=== PATIENT | female | born 1955 | race Caucasian/White ===

== ENCOUNTER 2023-01-30 12:01 | Outpatient (REF) | payer OTHER, MEDICAID, SELFPAY ==
[2023-01-30 13:35] LABS: MANUAL DIFF FLAG NO
[2023-01-30 13:53] LABS: Basophils Percent Auto 0.4 % (0-2); Eosinophils Absolute Auto 0.1 X10*3/uL (0.0-0.4); Eosinophils Percent Auto 1.1 % (0-4); Hematocrit 41.8 % (37.0-47.0); Hemoglobin 13.9 g/dl (12.0-16.0); Imm Gran Abs Auto 0.02 X10*3/uL (0.00-0.03); Imm Gran Pct Auto 0.2 % (0.0-0.4); Lymphocytes Absolute Auto 2.4 X10*3/uL (1.2-4.9); Lymphocytes Percent Auto 28.9 % (20-40); Mean Corpuscular HGB Conc 33.3 g/dl (31.0-35.0); Mean Corpuscular Hemoglobin 30.1 pg (27.0-33.0); Mean Corpuscular Volume 90.5 fL (80.0-98.0); Mean Platelet Volume 9.5 fL (9.4-12.3); Monocytes Absolute Auto 0.9 X10*3/uL (0.1-1.2); Monocytes Percent Auto 10.6 % (2-11); Neutrophils Absolute Auto 4.9 x10*3/uL (2.0-8.3); Neutrophils Percent Auto 58.8 % (45-73); Platelet Count 308 X10*3/uL (160-400); Red Blood Count 4.62 X10*6/uL (4.20-5.50); Red Cell Distribution Width 13.3 % (11.0-16.0); White Blood Count 8.3 X10*3/uL (4.8-10.8)
[2023-01-30 14:50] LABS: Alanine Aminotransferase 47 U/L (0-31); Albumin Level 3.8 g/dL (3.5-5.0); Alkaline Phosphatase 107 U/L (39-117); Anion Gap 12 (12-20); Aspartate Amino Transferase 39 U/L (5-31); Bilirubin Direct 0.2 mg/dL (0.0-0.5); Bilirubin Total 0.5 mg/dL (0.0-1.0); Blood Urea Nitrogen 12 mg/dL (9-16); Calcium 9.4 mg/dL (8.4-10.2); Carbon Dioxide 30 mmol/L (22-29); Chloride 99 mmol/L (96-108); Cholesterol 194 mg/dL; Estimated Glomerular Filt Rate > 60; Glucose Random 113 mg/dL (60-115); HDL Cholesterol 40 mg/dL; Iron 77 mcg/dL (30-160); LDL Cholesterol Calculated 128 mg/dl; Magnesium 2.3 mg/dL (1.6-2.6); Percent Iron Saturation 27 % (15-50); Potassium 3.7 mmol/L (3.3-5.1); Sodium 137 mmol/L (135-145); Total Iron Binding Capacity 281 mcg/dL (228-428); Total Protein 7.4 g/dL (6.5-8.0); Triglycerides 130 mg/dL; Unsaturated Iron Binding 204 ug/dL
[2023-01-30 14:52] LABS: Estimated Average Glucose 140 mg/dL; Hemoglobin A1c % 6.5 %
[2023-01-30 15:08] LABS: Ferritin 175 ng/mL (10-250); TSH reflex Free T4 93.09 uIU/mL (0.32-4.0)
[2023-01-30 16:15] LABS: Free T4 (Free Thyroxine) < 0.42 ng/dL (0.71-1.85)
[2023-01-30 16:18] LABS: Folate 6.5 ng/mL (> or = 4.0); Vitamin B12 555 pg/mL (200-900)
[2023-01-31 08:43] LABS: HIV AB/AG Nonreactive (Nonreactive); HIV Num 1 0.04 S/CO (0.00-0.99)
[2023-01-31 08:46] LABS: ~HepC Num1 0.13 S/CO (0.00-0.79); ~Hepatitis C Antibody Nonreactive (Nonreactive)
[2023-02-05 12:44] LABS: VITAMIN D (1,25 OH) D3 58 pg/mL; Vit D (1,25-Dihydroxy) Total 58 pg/mL (18-72); Vitamin D (1,25 OH) D2 <8 pg/mL
== END 2023-01-30 12:02 | disposition home or self-care (01) ==
LOC: HO.HHCL 12:01
PROVIDERS: Visit Provider Family Medicine
DX: Z11.4 Encounter for screening for human immunodeficiency virus [HIV] (principal); R53.1 Weakness
CPT/HCPCS: 36415; 80048; 80061; 80076; 82607; 82652; 82728; 82746; 83036; 83540; 83735; 84439; 84443; 85025; 86803; 87389

== ENCOUNTER 2023-03-11 12:58 | Emergency (ER) | payer OTHER, SELFPAY ==
--- NOTE | ~2023-03-11 | XR_ITS ---
EXAMINATION: XR CHEST CLINICAL INFORMATION: Chest pain. COMPARISON: None available. TECHNIQUE: Frontal view of the chest was obtained. FINDINGS: No significant abnormality is noted involving the heart, lungs, mediastinum, bony thorax or soft tissues. XR/XR chest 1V IMPRESSION: No acute cardiopulmonary process.
--- NOTE | ~2023-03-11 | CT_ITS ---
EXAMINATION: CT ABDOMEN AND PELVIS WITH CONTRAST CLINICAL INFORMATION: Diffuse abdominal pain. COMPARISON: None available. TECHNIQUE: Multidetector volumetric images were obtained from the superior aspect of the liver through the pubic symphysis following administration 85 mL of Omnipaque 350 intravenous contrast. Sagittal and coronal reformatted images were obtained on the technologist's workstation. Oral contrast: No This CT examination was performed using dose optimization techniques as appropriate, variously including the following: *Automated exposure control *Adjustment of mA and/or kV according to patient size (this includes techniques or standardized protocols for targeted exams where dose is matched to indication/reason for exam; i.e. extremities or head) *Use of iterative reconstruction technique DLP: 655 mGy-cm FINDINGS: LUNG BASES: Mild elevation of the right hemidiaphragm. Mild bibasilar linear atelectasis/scarring, right greater than left. No pleural or pericardial effusions. LIVER, GALLBLADDER, AND BILIARY TREE: Unremarkable. PANCREAS: Unremarkable. SPLEEN: Unremarkable. ADRENAL GLANDS: Unremarkable. KIDNEYS AND URETERS: Nonobstructing intrarenal calculi bilaterally, left greater than right. Small cysts bilaterally, left greater than right demonstrate benign features. No hydroureteronephrosis. BLADDER: Mildly distended without focal abnormality. GASTROINTESTINAL TRACT: The stomach and small bowel and appendix are unremarkable. The colon and rectum are unremarkable. ABDOMINAL WALL: No significant hernia is appreciated. LYMPH NODES: No lymphadenopathy. VASCULAR: Unremarkable. PELVIC VISCERA: Anteverted/anteflexed uterus. Fluid attenuation left adnexal cyst measures 4.0 cm in AP dimension without calcification. No right adnexal abnormality. OSSEOUS STRUCTURES: L5-S1 is transitional with partial sacralization of L5, greater on the right side. Prominent disc osteophyte complexes on the right at L3-L4 and L4-L5 with associated narrowing of the right neural foramina. Mild to moderate multilevel degenerative changes including prominent multilevel marginal osteophyte formation. No acute/suspicious abnormality. CT/CT abdomen pelvis w IV con IMPRESSION: 1. No acute intra-abdominal/pelvic abnormality to explain the patient's pain. 2. Nonobstructing intrarenal calculi bilaterally, left greater than right. Small renal cysts demonstrate benign features not requiring follow-up at this time. 3. 4 cm left adnexal cyst demonstrates benign features, but should be followed up with pelvic ultrasound for additional characterization. 4. Multilevel degenerative changes in the lumbar spine with associated narrowing of the right neural foramina at L3-L4 and L4-L5.
--- NOTE | 2023-03-11 13:10 | ED_ITS ---
HPI - Chest Pain General Chief Complaint: Chest Pain Stated Complaint: chest pain Time Seen by Provider: 03/11/23 13:07 Source: patient, family and EMS Mode of arrival: EMS Limitations: language barrier History of Present Illness HPI narrative: EMS gave ASA and zofran patient presents with no chest pain. Patient was in the bathroom and she felt her chest tightning. It was substernal. According to her son she has had chest pain and panic attacks. Patient with old right sided weakness complaint: chest pain Onset (ago): minute(s) Timing of current episode: episodic Prior episodes: No Related Data Allergies Allergy/AdvReac Type Severity Reaction Status Date / Time penicillin G Allergy Intermediate Itching Verified 03/11/23 13:13 Review of Systems Review of Systems: Yes all other systems are reviewed and are negative Neurologic: Denies Sensory deficit (Neuro) [facility] Social History Social History Advance Directives: No Advance Directives Information Provided: Yes Physical Exam Vital Signs: Vital Signs: Last Vital Signs Temp 97.9 F 03/11/23 16:05 Pulse 75 03/11/23 16:05 Resp 16 03/11/23 16:05 BP 112/32 L 03/11/23 16:05 Pulse Ox 97 03/11/23 16:05 O2 Del Method Room Air 03/11/23 16:05 BMI result Body Mass Index 30.2 Const: Other: obese female looking older than stated age, looking unkept Orientation/consciousness: oriented to person Limitations: no limitations HEENT: Head: Yes normal to inspection Ears: external ears normal General nose exam: Normal external nose present Mouth: Normal oral and palatal mucosa present and oropharynx normal Throat: Yes posterior oropharynx normal Eyes: General: appearance normal, both eyes and all related structures Neck: Other: supple Neck: Yes normal visual inspection Chest: Chest palpation & inspection: normal inspection of the chest Resp: Auscultation: clear to auscultation bilaterally Cardio: Jugular venous distension: no JVD Rate: regular rate Rhythm: regular rhythm Heart sounds: S1 normal heart sound present and S2 normal heart sound present GI: Inspection: Yes normal to inspection Palpation (GI): Soft to palpation, nontender and No hepatosplenomegaly present Auscultation: normal bowel sounds : General: Yes no CVA tenderness Back/Spine/Pelvis: Back: no CVA tenderness Skin: General skin exam: no rashes or lesions noted Neuro: Other: old right sided weakness and facial weakness General: oriented to person Sensory Exam: No Sensory deficit (Neuro) Extrem: General: Yes normal to inspection Psych: Appearance: grossly normal Course Reevaluation(s) Reevaluation #1: repeat troponin negative, will dc home Time: 17:23 Medications Administered Discontinued Medications Generic Name Dose Route Start Last Admin Trade Name Marty PRN Reason Stop Dose Admin Nitroglycerin 1 inch 03/11/23 13:13 03/11/23 13:23 Nitroglycerin 2 % Oint 1 Gm Packet TRANSDERMA 03/11/23 13:14 1 inch ONCE ONE Administration Medical Decision Making Differential Diagnosis Differential Diagnoses: The differential diagnosis associated with the presentation includes (cardiac ischemia, CAD, pneumonia, costrochondritis were all considered) Admission/Observation Consideration of admission/observation: Escalation of care including admission/observation considered (upon arrival patient was considered for admission) Lab Data MDM Lab Attestation statement: I reviewed the patient's lab results. (WBC slightly elevated, troponin normal) 03/11/23 13:46 03/11/23 13:46 Labs: Lab Results 03/11/23 03/11/23 03/11/23 Range/Units 13:46 13:46 13:46 WBC 11.3 H (4.8-10.8) X10*3/uL RBC 4.87 (4.20-5.50) X10*6/uL Hgb 14.3 (12.0-16.0) g/dl Hct 42.9 (37.0-47.0) % MCV 88.1 (80.0-98.0) fL MCH 29.4 (27.0-33.0) pg MCHC 33.3 (31.0-35.0) g/dl RDW 11.9 (11.0-16.0) % Plt Count 263 (160-400) X10*3/uL MPV 9.6 (9.4-12.3) fL Immature Gran % (Auto) 0.4 (0.0-0.4) % Neut % (Auto) 59.7 (45-73) % Lymph % (Auto) 23.3 (20-40) % Gregory % (Auto) 15.1 H (2-11) % Eos % (Auto) 1.1 (0-4) % Baso % (Auto) 0.4 (0-2) % Lymph # (Auto) 2.6 (1.2-4.9) X10*3/uL Gregory # (Auto) 1.7 H (0.1-1.2) X10*3/uL Eos # (Auto) 0.1 (0.0-0.4) X10*3/uL Baso # (Auto) 0.0 (0.0-0.2) X10*3/uL Abs Immat Gran (auto) 0.04 H (0.00-0.03) X10*3/uL Absolute Neuts (auto) 6.8 (2.0-8.3) x10*3/uL Absolute Nucleated RBC 0.000 (0.0-0.012) X10*3/uL Nucleated RBC % (auto) 0.0 (0.0-0.2) /100WBC Smear Tech's Comments VERIFIED Sodium 136 (135-145) mmol/L Potassium 3.7 (3.3-5.1) mmol/L Chloride 100 (96-108) mmol/L Carbon Dioxide 26 (22-29) mmol/L Anion Gap 14 (12-20) BUN 11 (9-16) mg/dL Creatinine 0.56 (0.5-1.4) mg/dL Estim Creat Clear Calc 91.0 Estimated GFR > 60 Random Glucose 117 H (60-115) mg/dL Calcium 9.4 (8.4-10.2) mg/dL Troponin I High Sens < 2.7 (<3.5-17.0) ng/L 03/11/23 Range/Units 16:35 WBC (4.8-10.8) X10*3/uL RBC (4.20-5.50) X10*6/uL Hgb (12.0-16.0) g/dl Hct (37.0-47.0) % MCV (80.0-98.0) fL MCH (27.0-33.0) pg MCHC (31.0-35.0) g/dl RDW (11.0-16.0) % Plt Count (160-400) X10*3/uL MPV (9.4-12.3) fL Immature Gran % (Auto) (0.0-0.4) % Neut % (Auto) (45-73) % Lymph % (Auto) (20-40) % Gregory % (Auto) (2-11) % Eos % (Auto) (0-4) % Baso % (Auto) (0-2) % Lymph # (Auto) (1.2-4.9) X10*3/uL Gregory # (Auto) (0.1-1.2) X10*3/uL Eos # (Auto) (0.0-0.4) X10*3/uL Baso # (Auto) (0.0-0.2) X10*3/uL Abs Immat Gran (auto) (0.00-0.03) X10*3/uL Absolute Neuts (auto) (2.0-8.3) x10*3/uL Absolute Nucleated RBC (0.0-0.012) X10*3/uL Nucleated RBC % (auto) (0.0-0.2) /100WBC Smear Tech's Comments Sodium (135-145) mmol/L Potassium (3.3-5.1) mmol/L Chloride (96-108) mmol/L Carbon Dioxide (22-29) mmol/L Anion Gap (12-20) BUN (9-16) mg/dL Creatinine (0.5-1.4) mg/dL Estim Creat Clear Calc Estimated GFR Random Glucose (60-115) mg/dL Calcium (8.4-10.2) mg/dL Troponin I High Sens < 2.7 (<3.5-17.0) ng/L Independent Interpretation I performed an independent interpretation of an: EKG (sinus [address] or twave changes) and Plain X-Ray (no infiltrate) Chronic Conditions Patient?s care impacted by: Diabetes and Hypertension Discharge Plan Discharge Clinical Impression: Chest pain Patient Disposition: Home, Self-Care Instructions: Chest Pain (ED) Referrals: Oralia Srinivasan MD [Primary Care Provider] - 3 days
[2023-03-11 13:13] VITALS: BP 115/42; PULSE 78; RESP 14; TEMP 36.6; O2SAT 98; BMI 30.2
--- NOTE | 2023-03-11 13:13 | ECG_ITS ---
Test Reason : cp Blood Pressure : / mmHG Vent. Rate : 076 BPM Atrial Rate : 076 BPM P-R Int : 138 ms QRS Dur : 080 ms QT Int : 386 ms P-R-T Axes : 066 054 071 degrees QTc Int : 434 ms Normal sinus rhythm Normal ECG No previous ECGs available Referred By: Elder Han Electronically Signed By:ALEK QUINTANA
[2023-03-11] MEDS: Nitroglycerin 2 % Oint 1 GM Packet 1 INCH TRANSDERMA (13:23)
[2023-03-11 13:58] LABS: Basophils Percent Auto 0.4 % (0-2); Eosinophils Absolute Auto 0.1 X10*3/uL (0.0-0.4); Eosinophils Percent Auto 1.1 % (0-4); Hematocrit 42.9 % (37.0-47.0); Hemoglobin 14.3 g/dl (12.0-16.0); Imm Gran Abs Auto 0.04 X10*3/uL (0.00-0.03); Imm Gran Pct Auto 0.4 % (0.0-0.4); Lymphocytes Absolute Auto 2.6 X10*3/uL (1.2-4.9); Lymphocytes Percent Auto 23.3 % (20-40); MANUAL DIFF FLAG SCAN; Mean Corpuscular HGB Conc 33.3 g/dl (31.0-35.0); Mean Corpuscular Hemoglobin 29.4 pg (27.0-33.0); Mean Corpuscular Volume 88.1 fL (80.0-98.0); Mean Platelet Volume 9.6 fL (9.4-12.3); Monocytes Absolute Auto 1.7 X10*3/uL (0.1-1.2); Monocytes Percent Auto 15.1 % (2-11); Neutrophils Absolute Auto 6.8 x10*3/uL (2.0-8.3); Neutrophils Percent Auto 59.7 % (45-73); Platelet Count 263 X10*3/uL (160-400); Red Blood Count 4.87 X10*6/uL (4.20-5.50); Red Cell Distribution Width 11.9 % (11.0-16.0); SCAN SMEAR FLAG 1; White Blood Count 11.3 X10*3/uL (4.8-10.8)
[2023-03-11 14:11] LABS: Anion Gap 14 (12-20); Blood Urea Nitrogen 11 mg/dL (9-16); Calcium 9.4 mg/dL (8.4-10.2); Carbon Dioxide 26 mmol/L (22-29); Chloride 100 mmol/L (96-108); Estimated Glomerular Filt Rate > 60; Glucose Random 117 mg/dL (60-115); Potassium 3.7 mmol/L (3.3-5.1); Sodium 136 mmol/L (135-145)
[2023-03-11 14:24] VITALS: BP 118/50; PULSE 74; RESP 21; O2SAT 96
[2023-03-11 14:32] LABS: SLIDE REVIEW VERIFIED
[2023-03-11 14:48] LABS: Troponin-I High Sensitivity < 2.7 ng/L (<3.5-17.0)
[2023-03-11 16:05] VITALS: BP 112/32; PULSE 75; RESP 16; TEMP 36.6; O2SAT 97
--- NOTE | 2023-03-11 17:05 | PC.NURSE ---
pt lying in bed with family at the bedside, she is eating food brought in from family/ awaiting repeat trop she offers no cp complaints family states concern regarding stomach pain
[2023-03-11 17:07] LABS: Troponin-I High Sensitivity < 2.7 ng/L (<3.5-17.0)
--- NOTE | 2023-03-11 18:14 | PC.NURSE ---
patient states she has continues to have right lower abd pain, patient ate food earlier and states her pain did not increase due to this
[2023-03-11 19:49] VITALS: BP 125/54; PULSE 83; RESP 18; TEMP 37.2; O2SAT 96
--- NOTE | 2023-03-11 19:49 | MHC.EDTECH ---
This tech assumed care of patient at 1900, hourly rounds and vitals completed, Patient was repositioned to comfort with call thomas within reach, son is at bedside.
[2023-03-11] MEDS: iohexoL 350 MG/ML 100 ML INFUS..BTL IV (20:36)
[2023-03-11 21:01] VITALS: BP 147/69; PULSE 77; RESP 20; TEMP 36.8; O2SAT 98
[2023-03-11 21:50] VITALS: BP 131/62; PULSE 77; RESP 20; TEMP 36.8; O2SAT 98
--- NOTE | 2023-03-11 21:51 | MHC.EDTECH ---
Hourly rounds and vitals completed, patient is resting comfortably at this time and call thomas within reach.
--- NOTE | 2023-03-11 21:57 | MHC.EDTECH ---
Blood Sugar was obtained per request of RN, Result is 137. Jess WEISS made aware
[2023-03-11 22:03] LABS: Glucose, Whole Blood 137 mg/dL (60-115)
--- NOTE | 2023-03-11 22:07 | PHA.MEDREC ---
Pharmacy Consult ? Medication Reconciliation Pharmacy has completed the medication reconciliation. Patient family confirmed medications. Patient no longer taking omeprazole or metoprolol. Josie Saini, PharmD
[2023-03-11] MEDS: Metoprolol Tartrate 25 MG TABLET 75 MG PO (23:48)
[2023-03-11] MEDS: Insulin Glargine,Hum.rec.anlog 100 UNIT/ML 10 ML VIAL 21 UNIT SUBCUT (23:49)
[2023-03-12] VITALS: BP 131/60; PULSE 81; RESP 18; TEMP 36.7; O2SAT 98
--- NOTE | 2023-03-12 | PC.NURSE ---
pt medicated according to mar. pt son at bedside. awaiting ride for transport home
--- NOTE | 2023-03-12 00:01 | MHC.EDTECH ---
Hourly rounds and vitals completed, patient is awaiting discharge at this time.
--- NOTE | 2023-03-12 01:42 | PC.NURSE ---
this rn gave report to ems prior to transport. iv removed at discharge. this rn provided pt and pt son with discharge packet. pt and pt son verbalized understanding of discharge plan
== END 2023-03-12 01:44 | disposition home or self-care (01) ==
PROVIDERS: Emergency Medicine; Emergency Provider Emergency Medicine; PCP Family Medicine
DX: R07.89 Other chest pain (principal); R10.13 Epigastric pain; Z79.899 Other long term (current) drug therapy
CPT/HCPCS: 36415; 71045; 74177; 80048; 82947; 84484; 85025; 93005; 99284; 99285; Q9967